=== PATIENT | male | born 1960 | race Caucasian/White ===

== ENCOUNTER 2020-01-20 15:00 | Outpatient (CLI) | payer OTHER, SELFPAY ==
--- NOTE | ~2020-01-20 | XR_ITS ---
EXAMINATION: XR knee RT min 4V DATE: 01/20/2020 15:35 INDICATION: Right knee pain. TECHNIQUE: 4 views of right knee were obtained. COMPARISON: None. FINDINGS: Bone alignment is normal. No fracture. Joint spaces are well maintained. There is no knee j oint effusion. IMPRESSION: 1. Normal right knee. Reviewed, dictated and finalized at location A. IMPRESSION: 1. Normal right knee.
== END 2020-01-20 15:01 | disposition home or self-care (01) ==
PROVIDERS: PCP Internal Medicine; Visit Provider Clinical Nurse Specialist
DX: M25.569 Pain in unspecified knee (principal)
CPT/HCPCS: 73564

== ENCOUNTER 2020-01-28 17:11 | Outpatient (CLI) | payer OTHER, SELFPAY ==
--- NOTE | ~2020-01-28 | MR_ITS ---
EXAMINATION: MR knee RT wo con DATE: 01/28/2020 18:03 INDICATION: Right knee pain TECHNIQUE: Magnetic resonance imaging (MRI) of the right knee was performed without intravenous contr ast. Sequences included coronal PD-weighted FSE, coronal PD-weighted FS FSE, sagittal T2-weighted FS E, sagittal PD-weighted FS FSE and axial PD weighted fat saturated FSE. COMPARISON: None. FINDINGS: Medial compartment: Medial meniscus is normal. Deep chondral fissuring with minimal underlying subarticular edema at the central aspect of the medial tibial plateau. Deep chondral fissuring without central reticular change s at the anterior weightbearing medial femoral condyle. Small region of partial-thickness chondral ul ceration with deep fissuring and minimal irregularity to the underlying articular cortex and minimal subarticular edema at the central weightbearing medial femoral condyle. Lateral compartment: There is increased signal contacting articular surface along the inner third of the portion of the ursula dy of the lateral meniscus consistent with tear of indeterminate morphology. Chondral surface regular ity and shallow chondral fissuring at the anterior weightbearing lateral femoral condyle and mid to p osterior aspect of the lateral tibial plateau. Small region of deep chondral ulceration with underlyi ng small central subchondral osteophyte and minimal subarticular edema at the posterior weightbearing lateral femoral condyle. Patellofemoral compartment: Extensive full/near full-thickness chondral ulceration along the lateral trochlea with underlying sub articular cystic change and edema. Additional deep chondral ulceration with mild irregular to the art icular cortex at the medial trochlea. Less severe partial thickness chondral ulceration at the trochl ear groove. Additional deep patellar chondral fissuring and ulceration with scattered subarticular ed smiley involving the medial and lateral facets as well as the apical ridge. Ligaments and tendons: Anterior and posterior cruciate ligaments are normal. The medial collateral ligament is normal. There is mild thickening and minimal increased signal of the proximal fibular collateral ligament without surrounding edema consistent with scarring related to chronic sprain. Mild distal quadriceps tendinop athy without discrete tear. The patellar tendon is normal. The visualized medial and lateral hamstrin g tendons as well as the iliotibial band are normal. Fluid: Physiologic amount of fluid in the joint space. No loose osteochondral bodies identified. Osseous/other: Bone alignment is normal. No fracture or pathologic marrow replacing process. IMPRESSION: 1. Small tear of indeterminate morphology along the inner third of the body of the lateral meniscus. 2. Mild tricompartmental osteoarthritis at the right knee with regions of high-grade chondromalacia i n all 3 compartments most severe and extensive in the patellofemoral compartment. Reviewed, dictated and finalized at location A. IMPRESSION: 1. Small tear of indeterminate morphology along the inner third of the body of the lateral meniscus. 2. Mild tricompartmental osteoarthritis at the right knee with regions of high- grade chondromalacia in all 3 compartments most severe and extensive in the pat ellofemoral compartment.
== END 2020-01-28 17:12 | disposition home or self-care (01) ==
LOC: ANHIMG 17:12
PROVIDERS: PCP Internal Medicine; Visit Provider Clinical Nurse Specialist
DX: M17.11 Unilateral primary osteoarthritis, right knee (principal)
CPT/HCPCS: 73721

== ENCOUNTER 2021-06-01 07:58 | Outpatient (RCR) | payer OTHER, SELFPAY ==
[2021-06-01 10:25] VITALS: BP 109/76; PULSE 60; RESP 20; TEMP 36.7; O2SAT 98
[2021-06-01] MEDS: diphenhydrAMINE HCl CAP 25 MG CAPSULE PO (10:28)
[2021-06-01] MEDS: FAMOTIDINE 20 MG TABLET PO (10:28)
[2021-06-01] MEDS: ACETAMINOPHEN 325 MG TABLET 650 MG PO (10:28)
[2021-06-01 12:10] VITALS: BP 134/72
--- NOTE | 2021-06-02 11:02 | PC.NURSE ---
Mr Ace called back and stated he is feeling well today, just complaining of fatigue. He has no questions at this time for us.
== END 2021-06-01 17:00 ==
LOC: AMCINF 07:58
PROVIDERS: PCP Nurse Practitioner; Visit Provider Internal Medicine Hematology & Oncology
DX: U07.1 COVID-19 (principal); I10 Essential (primary) hypertension
CPT/HCPCS: A9270; M0243; Q0243

== ENCOUNTER 2021-08-15 00:24 | Day surgery (SDC) | payer OTHER, SELFPAY ==
[2021-08-15 09:37] VITALS: BP 131/83; PULSE 86; RESP 22; TEMP 36.1; O2SAT 96
[2021-08-15] MEDS: LACTATED RINGERS 1,000 ML 150 ML IV CONT (09:45)
--- NOTE | 2021-08-15 09:49 | P.PNAN_ITS ---
Anes - Initial Pre Proc Eval Procedure: Operation Date: 08/15/21 11:00 Proposed Procedures p Screening Colonoscopy - Patricio Connelly MD Date/Time: 08/15/21 09:49 Surgeon: Patricio Connelly MD Pre Op Diagnosis: neoplasm screening Patient Data Age: 60 Gender: M Height: 1.83 m Weight: 182 kg Last Vital Signs Temp 97 F L 08/15/21 09:37 Pulse 86 08/15/21 09:37 Resp 22 H 08/15/21 09:37 BP 131/83 08/15/21 09:37 Pulse Ox 96 08/15/21 09:37 Allergies Allergy/AdvReac Type Severity Reaction Status Date / Time No Known Allergies Allergy Verified 08/15/21 09:36 Home Medications Medication Instructions Recorded Confirmed Type sildenafil 100 mg tablet 100 mg PO DAILY PRN #30 tablet 04/21/20 07/29/21 Rx losartan 50 mg tablet 50 mg PO DAILY #90 tablet 04/26/21 07/29/21 Rx Patient hx anesthesia problems: none Family hx anesthesia problems: none Results Review: All pre-operative results and documents have been reviewed as part of the pre-operative evaluation. [facility] Past Medical History Medical History (Updated 06/01/21 @ 08:19 by Sam Reid, PharmD) Cholecystectomy planned Chondromalacia, patella Hyperlipidemia Hypertension Lateral meniscus tear Morbid obesity due to excess calories Right knee pain Vision abnormalities Weight gain Family History Family History Mother Family history of Alzheimer's disease Other Heart disease Hypertension Social History Social History (Updated 04/26/21 @ 09:04 by Merary Ferreira) Social History: Caffeine-soda occasionally Smoking status: Never smoker Tobacco type: smokeless tobacco Smokeless tobacco user: chewing tobacco Alcohol intake: current Alcohol use details: [facility] Living arrangements: with family Spiritual care concerns: No Anes - Eval Final PreProcedure Day of Procedure 08/15/21 09:49 Patient weight: super morbidly obese Heart: regular rate and rhythm Lungs: clear to auscultation Airway: Mallampati scale class III Neurological: alert and oriented Last oral intake: >/= 8 hours ASA classification: IV Emergent: no Anesthetic plan: proceed Anesthesia type and monitoring: general GIVS and standard monitoring Results Review: All pre-operative results and documents have been reviewed as part of the pre-operative evaluation. Informed Consent: The patient's anesthetic plan and its attendant risks and benefits were discussed with the patient/family/POA. Questions were solicited and answers provided to the satisfaction of the patient/family/POA.
--- NOTE | 2021-08-15 09:56 | PM.HPGS ---
History of Present Illness History of Present Illness Consent: Risks, benefits, and alternatives have been discussed and questions answered. Patient agrees to proceed with procedure. Chief complaint: neoplasm screening Narrative: Anshu Bello is a 60 year old male here for screening colonoscopy, last one about 10 years ago. Review of Systems Constitutional: Constitutional: Denies headache(s) and Denies weakness Eyes: Eyes: Denies blurry vision ENT: Reports Normal hearing present, Denies headache(s) and Denies neck pain Cardiovascular: Cardiovascular: Denies chest pain and Denies dyspnea Respiratory: Respiratory: Denies dyspnea Gastrointestinal: Gastrointestinal: Reports no additional gastrointestinal complaints Genitourinary: Genitourinary: Denies dysuria Musculoskeletal: Musculoskeletal: Denies neck pain Integumentary/Breasts: Skin/Breast: Denies dry skin Neurologic: Reports Normal hearing present, Denies headache(s) and Denies weakness Psychiatric: Psychiatric: Denies anxiety Endocrine: Endocrine: Denies change in body appearance Hematologic/Lymphatic: Hematologic/Lymphatic: Denies easy bleeding Allergic/Immunologic: Allergic/Immunologic: Denies urticaria PMFSH Past Medical History Medical History (Updated 06/01/21 @ 08:19 by Sam Reid, PharmD) Cholecystectomy planned Chondromalacia, patella Hyperlipidemia Hypertension Lateral meniscus tear Morbid obesity due to excess calories Right knee pain Vision abnormalities Weight gain Family History Family History Mother Family history of Alzheimer's disease Other Heart disease Hypertension Social History Social History (Updated 04/26/21 @ 09:04 by Merary Ferreira) Social History: Caffeine-soda occasionally Smoking status: Never smoker Tobacco type: smokeless tobacco Smokeless tobacco user: chewing tobacco Alcohol intake: current Alcohol use details: [facility] Living arrangements: with family Spiritual care concerns: No Meds Home Medications and Allergies Home Medications Medication Instructions Recorded Confirmed Type sildenafil 100 mg tablet 100 mg PO DAILY PRN #30 tablet 04/21/20 07/29/21 Rx losartan 50 mg tablet 50 mg PO DAILY #90 tablet 04/26/21 07/29/21 Rx Allergies Allergy/AdvReac Type Severity Reaction Status Date / Time No Known Allergies Allergy Verified 08/15/21 09:36 Vital Signs Vital Signs - 24 hr 08/15/21 09:37 Temperature 97 F L Pulse Rate 86 Respiratory Rate 22 H Blood Pressure 131/83 Pulse Oximetry 96 Exam Const: General: comfortable and no acute distress HENMT: General nose exam: Normal nares present Eyes: General: appearance normal, both eyes and all related structures Neck: Neck: no JVD Resp: Auscultation: clear to auscultation bilaterally Cardio: Rate: regular rate Rhythm: regular rhythm GI: Inspection: non-distended GI Palp: Yes Soft to palpation Skin: General skin exam: normal color Neuro: General: gait normal Speech: normal speech Extrem: General: normal to inspection Psych: Mental Status: mental status grossly normal Assessment and Plan Assessment and plan (1) Screening for colon cancer: Code(s): Z12.11 - Encounter for screening for malignant neoplasm of colon Status: Acute Assessment and Plan: colonoscopy
[2021-08-15 10:18] VITALS: BP 155/85; PULSE 92; RESP 22; O2SAT 94
[2021-08-15 10:28] VITALS: BP 129/84; PULSE 82; RESP 33; O2SAT 97
[2021-08-15 10:38] VITALS: BP 132/79; PULSE 81; RESP 22; O2SAT 96
== END 2021-08-15 10:44 | disposition home or self-care (01) ==
PROVIDERS: PCP Internal Medicine; Visit Provider Internal Medicine Gastroenterology
PROC: 0DJD8ZZ Inspection of Lower Intestinal Tract, Via Natural or Artificial Opening Endoscopic (ICD-10-PCS; CPT 45378; principal; 2021-08-15 11:00)
DX: Z12.11 Encounter for screening for malignant neoplasm of colon (principal); K63.5 Polyp of colon; K64.8 Other hemorrhoids; E78.5 Hyperlipidemia, unspecified; I10 Essential (primary) hypertension; E66.9 Obesity, unspecified; Z68.43 Body mass index [BMI] 50.0-59.9, adult
CPT/HCPCS: 45385; 88305; J2704; J7120

== ENCOUNTER 2021-08-25 08:13 | Outpatient (CLI) | payer OTHER, SELFPAY ==
--- NOTE | ~2021-08-25 | US_ITS ---
EXAMINATION: US soft tissue head and neck DATE: 08/25/2021 08:42 INDICATION: Neck lump. TECHNIQUE: Multiple grayscale and Doppler ultrasound images of the neck were obtained. COMPARISON: None FINDINGS: There are normal lymph nodes in the patient's areas of concern in right neck. No abnormal m ass. IMPRESSION: 1. Normal lymph nodes in the patient's areas of concern in right neck. Reviewed, dictated and finalized at location A. ER HEWER
--- NOTE | ~2021-08-25 | US_ITS ---
EXAMINATION: US soft tissue abdomen DATE: 08/25/2021 08:42 INDICATION: Right abdominal lump. TECHNIQUE: Multiple grayscale and Doppler ultrasound images of the abdomen were obtained. COMPARISON: Abdomen ultrasound 10/18/2016 FINDINGS: There is a 1.1 x 0.4 x 0.8 cm hypoechoic subcutaneous mass in right abdominal wall in the p atient's area of concern. IMPRESSION: 1. Nonspecific 1.1 cm hypoechoic subcutaneous mass in right abdominal wall in the patient's area of c oncern, which may be benign or less likely malignant. Consider either clinical follow-up or ultrasoun d-guided core needle biopsy. Reviewed, dictated and finalized at location A. RT PRE COOKER IMPRESSION: 1. Nonspecific 1.1 cm hypoechoic subcutaneous mass in right abdominal wall in t he patient's area of concern, which may be benign or less likely malignant. Con senior net software developer either clinical follow-up or ultrasound-guided core needle biopsy.
== END 2021-08-25 08:14 | disposition home or self-care (01) ==
PROVIDERS: PCP Internal Medicine; Visit Provider Family Medicine
DX: R59.0 Localized enlarged lymph nodes (principal); R19.00 Intra-abdominal and pelvic swelling, mass and lump, unspecified site
CPT/HCPCS: 76536; 76705

== ENCOUNTER 2021-09-08 08:57 | Outpatient (CLI) | payer OTHER, SELFPAY ==
--- NOTE | ~2021-09-08 | US_ITS ---
EXAMINATION: US biopsy abd retroperitoneal DATE: 09/08/2021 10:34 INDICATION: Hypoechoic subcutaneous mass at the right flank TECHNIQUE: The procedure including the risks and benefits was discussed with the patient. Risks discu ssed included bleeding and infection. The patient understood the risks and agreed to proceed. The sk in overlying the palpable abnormality at the right flank was prepped and draped in usual sterile fash ion. Anesthetic was administered with 1% lidocaine subcutaneously. An 18 gauge core biopsy needle w as advanced under continuous ultrasound observation to the lesion of interest. 3 core biopsy specime ns were obtained. The needle was removed and the entry site was cleaned and dressed. Post procedure ultrasound demonstrated no hemorrhage. FINDINGS: Ultrasound images demonstrate a 1.6 x 1.1 x 0.7 cm hypoechoic mass in the subcutaneous fat at the region of concern. Subsequent images demonstrate the biopsy needle advanced into the mass. IMPRESSION: 1. Successful Ultrasound-guided biopsy of the 1.3 cm hypoechoic subcutaneous mass of concern at the r ight flank. Reviewed, dictated and finalized at location A. IMPRESSION: 1. Successful Ultrasound-guided biopsy of the 1.3 cm hypoechoic subcutaneous ma ss of concern at the right flank.
== END 2021-09-08 08:58 | disposition home or self-care (01) ==
PROVIDERS: PCP Internal Medicine; Visit Provider Family Medicine
DX: R19.00 Intra-abdominal and pelvic swelling, mass and lump, unspecified site (principal)
CPT/HCPCS: 49180; 76942; 88305

== ENCOUNTER 2023-01-25 12:27 | Outpatient (RCR) | payer OTHER, SELFPAY ==
--- NOTE | 2023-01-25 13:13 | PTOPEVDC ---
Assessment and note entered by Elder Ewing, PT Thank you for referring Anshu Bello to [facility].? An evaluation has been completed. No further treatment is needed. Evaluation Information Assessment Status Evaluation Diagnosis Dizziness and Giddiness Onset 01/15/23 Subjective Information Patient reports SundayJanuary 15 the patient got out of bed and felt a little dizzy. After sitting there for a bit he stood up and then bent over to pick something up and felt light headed, dizzy and needed to sit down again because he was afraid of falling. Patient after resting got up and grab a drink and reports feeling better. The next morning he got up and felt a little off when he sat up, but after sitting awhile he felt better and since then reports no issues. Patient states he might have worked out a little harder than he thought the day before and had a cheat day on that Sunday also. Reported Pain Level Pain Score 0: Self Report Assessment PT Clinical Summary Anshu is a 62 year old male coming into the clinic with a diagnosis of dizziness and giddiness. Patient has two episodes about 10 days ago and since then none. Patient has normal ocular motor movement, good balance with eyes closed, on foam pad, and NBOS and negative giovanni Hallpike tests. Unable to elicit any S/S similar to his experience on January 15 and . Physical therapist thinking patient might have been dehydrated from working out extra hard the day before and possibly not hydrating as he should. No further visits recommend Plan of Care PT Services Indicated No Treatment Frequency and Discharged from skilled physical therapy Duration
== END 2023-01-26 14:24 | disposition home or self-care (01) ==
LOC: ANHPT 12:27
PROVIDERS: PCP Internal Medicine; Visit Provider Internal Medicine
DX: R42 Dizziness and giddiness (principal)
CPT/HCPCS: 97161

== ENCOUNTER → 2023-05-10 12:47 | Outpatient (CLI) | payer OTHER, SELFPAY ==
--- NOTE | ~2023-05-10 | US_ITS ---
EXAMINATION: US soft tissue head and neck DATE: 05/10/2023 13:03 INDICATION: Localized enlarged lymph nodes in right supraclavicular region. TECHNIQUE: Multiple grayscale and Doppler ultrasound images of the head and neck were obtained. COMPARISON: Ultrasound 08/25/2021 FINDINGS: There are normal lymph nodes in right neck in the patient's area of concern. IMPRESSION: 1. No abnormal mass or lymphadenopathy in the patient's area of concern in right neck. Reviewed, dictated and finalized at location A. TROTYPE MOLDER IMPRESSION: 1. No abnormal mass or lymphadenopathy in the patient's area of concern in righ t neck.
== END ==
PROVIDERS: PCP Internal Medicine; Visit Provider Internal Medicine
DX: J31.2 Chronic pharyngitis (principal); R59.0 Localized enlarged lymph nodes; Z72.0 Tobacco use
CPT/HCPCS: 76536

== ENCOUNTER 2024-01-23 14:56 | Emergency (ER) | payer OTHER, SELFPAY ==
--- NOTE | 2024-01-23 15:01 | ED.URI ---
HPI - URI/Sore Throat General Chief Complaint: Upper Respiratory Infection Stated Complaint: SORE THROAT/RUNNY NOSE/COUGH Time Seen by Provider: 01/23/24 15:01 Source: patient Mode of arrival: ambulatory Limitations: no limitations History of Present Illness HPI Narrative: Anshu is a 63-year-old male patient presenting to the clinic today with complaints of sore throat, runny nose, and cough times x4 days. He reports he may have had a fever on Sunday as he felt feverish. Denies any chest pain or shortness of breath. Denies any dental pain. MD elicited complaint: cough, sore throat and nasal congestion Related Data Allergies Allergy/AdvReac Type Severity Reaction Status Date / Time No Known Allergies Allergy Verified 01/23/24 15:06 Review of Systems Review of Systems: Pertinent positives per HPI. Patient denies any fever, chills, rash, headache, visual changes, dizziness, cough, shortness of breath, chest pain, palpitations, nausea, vomiting, diarrhea, constipation, abdominal pain, or any urinary issues. [facility] Past Medical History Medical History Cholecystectomy planned Chondromalacia, patella Hyperlipidemia Hypertension Lateral meniscus tear Morbid obesity due to excess calories Right knee pain Vision abnormalities Weight gain Family History Family History Mother Family history of Alzheimer's disease Other Heart disease Hypertension Social History Social History Social History: Caffeine-soda occasionally Smoking status: Never smoker Tobacco type: smokeless tobacco Smokeless tobacco user: chewing tobacco Alcohol intake: current Alcohol use details: rarley-beer Lack of Transportation: No Lack of Food: Never True Current Housing: I Have Housing Concerned About Future Housing: No Difficulty Paying Gas/Electric Bills: No Difficulty Paying for Meds: No Currently Unemployed: Decline to Answer Education: Decline to Answer Difficulty w/ Childcare or Family Care: Decline to Answer Living arrangements: with family Spiritual care concerns: No Comments At the time of my signature, I reviewed and agree with the nursing past medical, surgical, social, and family history. There is no relevant family history pertinent to the patient complaint. Exam Narrative: General: Well-developed, morbidly obese, in no apparent distress Head: Normocephalic, atraumatic Eyes: Pupils equally round and reactive to light bilaterally, EOM intact, sclera and conjunctive clear, no discharge, lids normal Ears: TMs intact and congested, ear canals clear, no drainage, grossly hearing normal. Nose: Nares patent, clear discharge, no inflammation, no sinus tenderness. Mouth: Oral pharynx red without lesions or masses, good dentition, MMM. Neck: Supple, trachea midline, no enlargement of anterior or posterior cervical nodes, no thyroid masses or goiter palpable. Cardio: Regular rate and rhythm, s1 and s2 normal, no murmur appreciated. Resp: Clear to auscultation bilaterally, no rhonchi, rales, wheezing or rubs Course Course Emergency Course: Portions of this record may have been created with voice recognition software. Level of Care: Express Care Visit Vital Signs Vital signs: Vital Signs Temperature 37.0 C 01/23/24 15:10 Pulse Rate 72 01/23/24 15:10 Respiratory Rate 16 01/23/24 15:10 Blood Pressure 161/98 H 01/23/24 15:10 Pulse Oximetry 97 01/23/24 15:10 Temperature 37.0 C 01/23/24 15:10 Pulse Rate 72 01/23/24 15:10 Respiratory Rate 16 01/23/24 15:10 Blood Pressure 161/98 H 01/23/24 15:10 Pulse Oximetry 97 01/23/24 15:10 Vital signs reviewed MDM - URI/Sore Throat MDM Narrative Medical decision making narrative: At the time of visit patient is resting comfortably on th
[2024-01-23 15:10] VITALS: BP 161/98; PULSE 72; RESP 16; TEMP 37; O2SAT 97
[2024-01-23 15:23] LABS: EDSTREPNEGPOS1 Presumptive Negative
== END 2024-01-23 15:16 | disposition home or self-care (01) ==
PROVIDERS: Emergency Provider Nurse Practitioner Family; PCP Internal Medicine
DX: U07.1 COVID-19 (principal); F17.220 Nicotine dependence, chewing tobacco, uncomplicated; E78.5 Hyperlipidemia, unspecified; I10 Essential (primary) hypertension; E66.01 Morbid (severe) obesity due to excess calories; Z68.43 Body mass index [BMI] 50.0-59.9, adult
CPT/HCPCS: 87081; 87426; 87880; 99213; G0463

== ENCOUNTER 2024-04-08 14:10 | Outpatient (RCR) | payer OTHER, SELFPAY ==
[2024-04-08 14:18] VITALS: BMI 55.3
[2024-04-08 14:21] VITALS: BMI 55.3
== END 2024-06-23 09:36 | disposition home or self-care (01) ==
LOC: ANHDMC 14:10
PROVIDERS: PCP Internal Medicine; Visit Provider Nurse Practitioner
DX: E66.9 Obesity, unspecified (principal); Z71.9 Counseling, unspecified; Z71.3 Dietary counseling and surveillance; Z68.43 Body mass index [BMI] 50.0-59.9, adult
CPT/HCPCS: 97802

== ENCOUNTER 2024-05-28 14:45 | Outpatient (RCR) | payer OTHER, SELFPAY ==
--- NOTE | 2024-04-24 10:23 | OPREHPOC ---
Outpatient Therapy Plan of Care This is a Multidisciplinary Plan of Care that may contain components documented by all disciplines (PT, OT, and ST.) PT Problem 1 PT Problem #1 Knowledge Deficit PT Goal 1 Goal / Goal Update Pt to be IND with issued HEP Target Visit 6 PT Problem 2 PT Problem #2 Pain PT Goal 1 Goal / Goal Update 1. Pt to report pain no greater than 3/10 in the last week. 2. Pt to report 75% improvement in overall symptoms. 3. Pt to report being able to sit for 1 hour without an increase in pain upon standing. Target Visit 6 PT Problem 3 PT Problem #3 Impaired Gait PT Goal 1 Goal / Goal Update 1. Pt to ambulate with a neutral gait pattern. Target Visit 6
--- NOTE | 2024-04-24 10:23 | PTOPEVAL1 ---
Assessment and note entered by Lupe Fletcher, PT, DPT Evaluation Information Assessment Status Evaluation Diagnosis low back pain ICD-10 Condition Codes (PT) Pain in low back M54.50 Subjective Information Pt report low back and R shoulder pain, the back pain started about 2 months ago and the shoulder about a month ago. Pt states sitting down or lifting anything is really hard for his low back. He states he drove to [place] straight through and feels like that is what started his pain. He states his R leg will go numb at times. Pt is retired. Reported Pain Level Pain Score 0: Self Report Assessment PT Clinical Summary Pt presents to therapy today for his initial evaluation with a diagnosis of low back pain, he also complains of R shoulder pain. He demonstrate functional ROM and strength in his BLE and BUE. He reports pain with max hip flexion on the R and demonstrates pelvic asymmetry in supine. He ambulates with a uncompensated Trendelenburg pattern. Skilled therapy services are indicated to address pain reports, improve lateral hip strength, improved lumbar mobility, and to return to PLOF. Plan of Care Interventions Electrical Stimulation,Hot Pack/Cold Pack,Manual Therapy,Neuro Re-education,Patient/Caregiver Educati,Therapeutic Activities,Therapeutic Exercise PT Services Indicated Yes Treatment Frequency and 1x/wk for 6 visits Duration These treatments will address the objective and functional deficits as defined above. The patient will be advanced safely and appropriately in order for the patient to progress towards his/her prior level of function. Additional exercises will be introduced and as well as a comprehensive home exercise program upon discharge, if needed, ?to ensure carryover of functional gains achieved in the clinic. This treatment plan has been reviewed and agreement upon by the patient.
--- NOTE | 2024-05-28 15:18 | PTOPDC ---
Assessment and note entered by Lupe Fletcher, PT, DPT Evaluation Information Assessment Status Discharge Diagnosis low back pain ICD-10 Condition Codes (PT) Pain in low back M54.50 Subjective Information Pt states his back is a lot better. He states he did over 10 hours of driving of the weekend and did not have any back pain, he states prior he would have pain after 30 mins of driving. He states his knees are starting to bother him now. He declines any numbness in the last 3 weeks. Reported Pain Level Pain Score 0: Self Report Assessment PT Clinical Summary Pt presents to therapy today for his progress report following 6 visits of skilled therapy to treat his diagnosis of low back pain. Today he reports decreased back pain at time but still has pain when he feels he has overexerted himself. Pt would like not to continue with therapy at this time. Edu to cont HEP. Plan of Care PT Services Indicated No
== END 2024-05-28 15:33 | disposition home or self-care (01) ==
LOC: ANHGOSHPT 14:45
PROVIDERS: PCP Internal Medicine; Visit Provider Internal Medicine
DX: M54.50 Low back pain, unspecified (principal)
CPT/HCPCS: 97014; 97110; 97140; 97161; 97530; G0283

== ENCOUNTER 2024-06-11 13:01 | Outpatient (CLI) | payer OTHER, SELFPAY ==
--- NOTE | 2024-06-11 14:30 | NEURO_ITS ---
Impression: # Complains of numbness of right hand. ? # Mild right Carpal Tunnel Syndrome. ? # No ulnar neuropathy. ? # Normal needle/EMG exam. Nerve Conduction Studies Anti Sensory Summary Table ?Stim Site NR Peak (ms) P-T Amp (?V) Site1 Site2 Delta-P (ms) Dist (cm) Ernesto (m/s) Right Median Anti Sensory (2-3nd Digit) Wrist ? 4.3 19.7 Wrist 2-3nd Digit 4.3 14.0 33 Wrist ? 4.4 28.6 Wrist 2-3nd Digit 4.3 14.0 33 Right Radial Anti Sensory (Base 1st Digit) Wrist ? 2.2 15.4 Wrist Base 1st Digit 2.2 0.0 Right Ulnar Anti Sensory (5th Digit) Wrist ? 2.8 16.9 Wrist 5th Digit 2.8 14.0 50 Motor Summary Table ?Stim Site NR Onset (ms) O-P Amp (mV) Site1 Site2 Delta-0 (ms) Dist (cm) Ernesto (m/s) Right Median Motor (Abd Poll Brev) Wrist ? 4.0 1.6 Elbow Wrist 5.3 28.0 53 Elbow ? 9.3 2.7 Right Ulnar Motor (Abd Dig Minimi) Wrist ? 2.5 9.2 A Elbow Wrist 5.3 29.0 55 A Elbow ? 7.8 9.0 F Wave Studies ?NR F-Lat (ms) L-R F-Lat (ms) Right Median (Mrkrs) (Abd Poll Brev) ? 33.88 Right Ulnar (Mrkrs) (Abd Dig Min) ? 31.62 EMG ?Side Muscle Nerve Root Ins Act Fibs Amp Dur Recrt Comment Right 1stDorInt Ulnar C8-T1 Nml Nml Nml Nml Nml Right Ext Indicis Radial (Post Int) C7-8 Nml Nml Nml Nml Nml Right Ext Digitorum Radial (Post Int) C7-8 Nml Nml Nml Nml Nml Right BrachioRad Radial C5-6 Nml Nml Nml Nml Nml Right PronatorTeres Median C6-7 Nml Nml Nml Nml Nml Right Abd Poll Brev Median C8-T1 Nml Nml Nml Nml Nml Right ABD Dig Min Ulnar C8-T1 Nml Nml Nml Nml Nml MTDD
== END 2024-06-11 13:02 | disposition home or self-care (01) ==
PROVIDERS: PCP Internal Medicine; Visit Provider Internal Medicine
DX: G56.01 Carpal tunnel syndrome, right upper limb (principal); G56.10 Other lesions of median nerve, unspecified upper limb
CPT/HCPCS: 95886; 95909

== ENCOUNTER 2024-08-04 11:46 | Outpatient (CLI) | payer OTHER, SELFPAY ==
--- NOTE | ~2024-08-04 | XR_ITS ---
Right Knee Technique: AP, lateral, and sunrise views were obtained. Clinical History: Pain Findings: No fracture or dislocation is seen. Osseous alignment is anatomic. Joint spaces are preserv ed without degenerative or erosive change. Soft tissues are unremarkable. No joint effusion is seen. Impression: Unremarkable right knee radiographs. Reviewed, dictated and finalized at location . GER CASE Impression: Unremarkable right knee radiographs.
== END 2024-08-04 11:47 | disposition home or self-care (01) ==
LOC: GOSHIMG 11:46
PROVIDERS: PCP Internal Medicine; Visit Provider Nurse Practitioner
DX: M25.561 Pain in right knee (principal)
CPT/HCPCS: 73562

== ENCOUNTER 2024-08-12 12:50 | Outpatient (CLI) | payer OTHER, SELFPAY ==
--- NOTE | ~2024-08-12 | MR_ITS ---
EXAMINATION: MR knee RT wo con DATE: 08/12/2024 13:26 INDICATION: Right knee pain TECHNIQUE: Magnetic resonance imaging (MRI) of the right knee was performed without intravenous contr ast. Sequences included coronal PD-weighted FSE, coronal PD-weighted FS FSE, sagittal T2-weighted FS E, sagittal PD-weighted FS FSE and axial PD weighted fat saturated FSE. COMPARISON: None. FINDINGS: Medial compartment: Tear, likely complex extending to the free edge and inferior articular surface of the body the medial meniscus. Deep chondral fissuring at the central aspect of the medial tibial plateau with mild under lying subarticular edema-like signal change and along the anterior to central weightbearing medial fe moral condyle with subtle cortical irregularity and small focus of mild subarticular edema-like signa l change at the posterior weightbearing medial femoral condyle. Lateral compartment: Small radial tear along the innermost free edge of the body the lateral meniscus. Mild partial-thickn ess cartilage loss without degenerative subchondral changes along the central weightbearing lateral f emoral condyle. Patellofemoral compartment: Deep chondral ulceration at the cephalad aspect of the patellar apical ridge and deep fissuring more caudally at the apical ridge and at the medial and lateral patellar facets with a few underlying foci of mild subarticular edema-like signal change. Deep chondral ulceration with underlying cortical irr egularity and mild subarticular edema-like signal change at the lateral trochlea with less severe par tial thickness chondral ulceration without degenerative subchondral changes at the trochlear groove a nd lateral trochlea. Ligaments and tendons: Anterior and posterior cruciate ligaments are normal. The medial collateral ligament and fibular ibis ateral ligament complex are normal. The extensor mechanism is normal. The visualized medial and later al hamstring tendons as well as the iliotibial band are normal. Fluid: Physiologic amount of fluid in the joint space. No loose osteochondral bodies identified. Osseous/other: Alignment is normal. No fracture or pathologic marrow replacing process. IMPRESSION: 1. Tear, likely complex, at the body the medial meniscus and very small radial tear along the inner f ree edge of the body the lateral meniscus. 2. Tricompartmental osteoarthritis, moderate severity with high-grade chondral malacia the patellofem oral compartment, mild with high-grade chondromalacia in the medial compartment and mild with moderat e grade chondromalacia in the lateral compartment. Reviewed, dictated and finalized at location A. AD CLIPPER IMPRESSION: 1. Tear, likely complex, at the body the medial meniscus and very small radial tear along the inner free edge of the body the lateral meniscus. 2. Tricompartmental osteoarthritis, moderate severity with high-grade chondral malacia the patellofemoral compartment, mild with high-grade chondromalacia in the medial compartment and mild with moderate grade chondromalacia in the later al compartment.
== END 2024-08-12 12:51 | disposition home or self-care (01) ==
PROVIDERS: PCP Internal Medicine; Visit Provider Nurse Practitioner
DX: M25.561 Pain in right knee (principal); S83.241A Other tear of medial meniscus, current injury, right knee, initial encounter; S83.281A Other tear of lateral meniscus, current injury, right knee, initial encounter; X58.XXXA Exposure to other specified factors, initial encounter; M17.11 Unilateral primary osteoarthritis, right knee; M94.261 Chondromalacia, right knee
CPT/HCPCS: 73721

== ENCOUNTER 2025-01-02 09:30 | Outpatient (RCR) | payer MEDICARE, OTHER, SELFPAY ==
--- NOTE | 2024-10-22 10:58 | PTOPEVAL1 ---
Assessment and note entered by Dennis Troy Evaluation Information Assessment Status Evaluation ICD-10 Condition Codes (PT) Pain in right knee M25.561 Subjective Information Pt. reports that he injured the right knee in April of last year. He states that he has experienced fluctuating pain since the initial injury. He reports that he underwent x-ray and MRI which revealed a meniscus tear in the right knee. He reports that he gets increased pain with any twisting motion in standing, stairs and squatting/kneeling activities. He states that he enjoys yard work, but has been limited in outdoor work due to his pain. He reports that he was going to the gym, but is now limited. he reports that he can only stand for a few minutes due to pain and has to sit frequently. He has had an injection in the knee, but got little relief. He reports that his goal is to reduce his knee pain. Reported Pain Level Pain Score 2: Self Report Assessment PT Clinical Summary Pt. is a 63 year old male who enters the clinic with right knee pain due to developed meniscus tear. He presents with impaired gait, impaired l. e. strength, impaired right knee mobility, pain and functional decline. Continued skilled PT is indicated in order to improve these areas to allow the pt. to return to normal IADL performance and return to normal recreational activities for a male of his age. Plan of Care Interventions Electrical Stimulation,Gait Training,Hot Pack/Cold Pack,Manual Therapy,Neuro Re-education,Patient/ Caregiver Education,Therapeutic Activities, Therapeutic Exercise PT Services Indicated Yes Treatment Frequency and 2x/week x 10 visits Duration These treatments will address the objective and functional deficits as defined above. The patient will be advanced safely and appropriately in order for the patient to progress towards his/her prior level of function. Additional exercises will be introduced and as well as a comprehensive home exercise program upon discharge, if needed, ?to ensure carryover of functional gains achieved in the clinic. This treatment plan has been reviewed and agreement upon by the patient.
--- NOTE | 2024-10-22 10:58 | OPREHPOC ---
Outpatient Therapy Plan of Care This is a Multidisciplinary Plan of Care that may contain components documented by all disciplines (PT, OT, and ST.) PT Problem 1 PT Problem #1 Knowledge Deficit PT Goal 1 Goal / Goal Update Pt. will be independent with a HEP addressing knee mobility and proximal l.e. strength. Target Visit 2 PT Problem 2 PT Problem #2 Impaired Range of Motion PT Goal 1 Goal / Goal Update Pt. will demonstrate 0-125 degrees right knee AROM .10 PT Problem 3 PT Problem #3 Impaired Strength PT Goal 1 Goal / Goal Update Pt. will present with 4+/5 bilateral hip abduction strength to improve hip stability during stance phase and to assist with normalizing gait. Target Visit 10 PT Problem 4 PT Problem #4 Impaired Functional Mobility PT Goal 1 Goal / Goal Update Pt. will demonstrate 20% improvement or greater on the LEFS indicating significant functional improvement. Pt. will demonstrate ability to participate in 20- 30 minutes of standing therapeutic activities with 2/10 pain at worst to return to normal IADL performance and recreational activities. Target Visit 10
--- NOTE | 2024-11-07 07:53 | PCPTNOTE ---
Patient called and cancelled his appointment for today, 11/07 as well as his appointments on 11/11 and 11/18 stating he only wants to come 1x/week.
--- NOTE | 2024-12-01 15:20 | PCPTNOTE ---
Patient cancelld leaving a message on [facility] but did not give a reason.
--- NOTE | 2025-01-02 10:00 | PTOPDC ---
Assessment and note entered by Sally Rondon, PT Evaluation Information Assessment Status Discharge ICD-10 Condition Codes (PT) Pain in right knee M25.561 Subjective Information He reports that he can only stand for a few minutes due to pain and has to sit frequently. He is unable to walk more than 30 yeards without having pain. He has been doing his exercises but continues to report feeling no difference. He does not think the injection helped at all. He reports if he twists his knee wrong it gives him a sharp pain and he has resorted to not bending his knee when he walks. Reported Pain Level Pain Score 0: Self Report Additional Pain Score Comments sharp pain when walking 01/01 Assessment PT Clinical Summary Patient's condition has made little to no advancements in symptoms, mobility, strength, and functional tolerance to ADLs. Pt's PT goals remain unmet with little to no progress made towards them. Patient to DC from PT this date and continue with HEP as instructed. Pt to contact PT or PCP if questions or concerns arise. Plan of Care PT Services Indicated Yes
== END 2025-01-05 09:44 | disposition home or self-care (01) ==
LOC: ANHGOSHPT 09:30
PROVIDERS: PCP Internal Medicine; Visit Provider Orthopaedic Surgery
DX: M25.561 Pain in right knee (principal); S83.231A Complex tear of medial meniscus, current injury, right knee, initial encounter; R26.89 Other abnormalities of gait and mobility; M17.9 Osteoarthritis of knee, unspecified
CPT/HCPCS: 97014; 97110; 97161; 97530; G0283

== ENCOUNTER 2025-05-04 15:44 | Emergency (ER) | payer MEDICARE, SELFPAY ==
[2025-05-04 15:54] VITALS: BP 157/93; PULSE 77; RESP 16; TEMP 36.6; O2SAT 98
--- NOTE | 2025-05-04 16:07 | ED_ITS ---
HPI - URI/Sore Throat General Chief Complaint: Upper Respiratory Infection Stated Complaint: Sore Throat Time Seen by Provider: 05/04/25 16:08 Source: patient, RN notes reviewed and old records reviewed Mode of arrival: ambulatory Limitations: no limitations History of Present Illness HPI Narrative: 64 year old male present to express care with complaints of sore throat with swelling and knot noted to the left anterior jaw line since Sunday morning with palpable tenderness. Patient reports that his pain is aggravated by eating and swallowing. Patient reports that he has had something similar in past and was t reated with antibiotics and it resolved. Patient reports no fevers chills or sweats, denies any dental pain or any known dental caries. Patient has no difficulty with his breathing and is swallowing without difficulty and is able to control his own oral secretions,no hoarseness noted.Patient reports that he is taking Meloxicam 15 mg daily, has not used ice to jaw area. Patient reports that he has appointment with his physician on Sunday. but didn't want to wait any longer to be seen. MD elicited complaint: sore throat and other (lump under left anterior jaw line) Pertinent past history: other (similar knot on jaw in past treated with antibiotics) Onset (ago): day(s) (3-4 days) Pain scale (0-10): 7 Description of mucous: clear Able to tolerate fluids by mouth: Yes Treatments prior to arrival: other (taking Meloxicam daily) Related Data Allergies Allergy/AdvReac Type Severity Reaction Status Date / Time No Known Allergies Allergy Verified 05/04/25 15:54 Review of Systems Review of Systems: CONSTITUTIONAL: Denies malaise, chills, sweats, or fever. EYES: Denies visual changes, redness, or discharge. ENT: Reports rhinorrhea, congestion, no sinus pain,no otalgia and positive for sore throat and swelling under his left anterior jaw with palpable knot. CARDIOVASCULAR: Denies chest pain, palpitations, or edema. RESPIRATORY: Reports no cough.? Denies dyspnea. GASTROINTESTINAL: Denies abdominal pain, nausea, vomiting, diarrhea SKIN: Denies rash or itching. MUSCULOSKELETAL: Denies myalgia. NEUROLOGIC: Denies headache. All systems reviewed & are unremarkable except as noted in HPI and below PMFSH Past Medical History Medical History Morbid obesity due to excess calories Lateral meniscus tear Chondromalacia, patella Vision abnormalities Weight gain Right knee pain Cholecystectomy planned Hyperlipidemia Hypertension Surgical History Surgical History Hx of cholecystectomy Family History Family History Mother Family history of Alzheimer's disease Father Hypertension Heart disease Alcohol abuse Sibling Hypertension Alcohol abuse Thyroid disease History of blood clots Social History Social History Social History: Caffeine-soda occasionally Tobacco type: smokeless tobacco Smokeless tobacco user: chewing tobacco Alcohol intake: current Alcohol use details: rarley-beer Substance use: never Do You Feel Safe in your Home?: Yes Lack of Transportation: No Lack of Food: Never True Current Housing: I Have Housing Concerned About Future Housing: No Difficulty Paying Gas/Electric Bills: No Difficulty Paying for Meds: No Currently Unemployed: No Education: Associate Degree Difficulty w/ Childcare or Family Care: No Living arrangements: with family Gender identity (if verbalized by the patient): Male Spiritual care concerns: No Comments At time of signature, agree with nursing past medical, surgical, social and family history. There is no relevant family history pertinent to the presenting complaint Exam Narrative: GENERAL: Well-appearing, well-nourished, morbidly obese,and in no acute distress. HEAD: Normocephalic EYES: PERRLA, conjunctivae clear ENT: Nares clear, turbinates edematous and erythematous, clear discharge. Mucous membranes moist. TM pearly kent with dull light reflex bilaterally; no tragal tenderness. Oropharynx erythematous without lesions. Tonsils not enlarged and without exudate, no drooling, no hoarseness, no trismus, uvula midline.swelling to the left anterior jaw with palpable lump noted which is tender, no Grayson angina noted no dental caries or any redness of gums or swelling, able to control own secretions. NECK: Supple. left lymphadenopathy CHEST: Clear to auscultation, breath sounds equal. No wheezing, rhonchi, rales, or stridor. No respiratory distress, speaks in full sentences.no cough, SAO2 98% on room air HEART: Regular rate and rhythm. No murmur heard. SKIN: Warm, dry, no rash. NEURO: Alert and oriented x3. PSYCH: Normal mood and affect Course Course Emergency Course: Patient is aware of diagnosis, understands and agrees to treatment plan.? Anticipatory guidance given.? Patient agrees to follow-up as directed and is aware of reasons to seek care at the emergency department. Portions of this record may have been created with voice recognition software Level of Care: Express Care Visit Vital Signs Vital signs: Vital Signs Temperature 36.6 C 05/04/25 15:54 Pulse Rate 77 05/04/25 15:54 Respiratory Rate 16 05/04/25 15:54 Blood Pressure 157/93 H 05/04/25 15:54 Pulse Oximetry 98 05/04/25 15:54 Temperature 36.6 C 05/04/25 15:54 Pulse Rate 77 05/04/25 15:54 Respiratory Rate 16 05/04/25 15:54 Blood Pressure 157/93 H 05/04/25 15:54 Pulse Oximetry 98 05/04/25 15:54 Reviewed MDM - URI/Sore Throat MDM Narrative Medical decision making narrative: Differential diagnosis considered: Watson virus, strep pharyngitis, allergic rhinitis, upper respiratory tract infection, sinusitis, rhinosinusitis, nasopharyngitis. viral pharyngitis, otitis media, otitis externa, pneumonia, bronchitis, viral cough syndrome, viral syndrome, and influenza.? Exam findings show no acute concerns or changes; patient is non-toxic appearing and is in no distress.? Patient is appropriate for outpatient treatment and follow-up. Differential Diagnosis Differential diagnosis: Likely viral infection, pharyngitis and other (swelling to left anterior jaw, sialadenitis, jaw pain) Medical Records Attestation: I reviewed the patient's medical records. Lab Data Attestation: I reviewed the patient's lab results. Critical Care Time Critical Care Time Critical Care Time: No Discharge Plan Discharge Clinical Impression: Swelling of salivary gland, Jaw pain Patient Disposition: Home Condition: Stable Instructions: Antibiotic Form, Sialoadenitis (ED) Additional Instructions: monitor for any fever . Do not share items with others. Salt water gargles may alleviate some of the throat discomfort. You can take Tylenol or ibuprofen per the package instructions for pain/fever. antibiotic as prescribed take all doses Medrol Dosepak take as prescribed may use ice to left anterior jaw area of discomfort and swelling If your symptoms persist, change or worsen significantly before you can contact your personal physician then please, without delay, go to the emergency department for further evaluation. Follow-up with PCP in 7-10 days or sooner if needed Follow up with PCP soon in regards to your blood pressure which is elevated above threshold for referral. Blood pressure above 120/80 may indicate pre- hypertension.157/93 if any difficulty with swallowing or breathing go directly to emergency room or call 911 maintain soft diet or clear liquids the next couple days Patient Language: [place] Prescriptions: New methylprednisolone [Medrol (Huey)] 4 mg tablets,dose pack See Rx Instructions .ROUTE .COMPLEX Qty: 21 0RF Rx Instructions: orally per package directions amoxicillin-pot clavulanate 875-125 mg tablet 1 tablet PO Q12H Qty: 20 0RF No Action meloxicam 15 mg tablet 15 mg PO DAILY Qty: 30 2RF losartan 50 mg tablet 50 mg PO DAILY Qty: 90 0RF Rx Instructions: NEEDS APPOINTMENT FOR FURTHER REFILLS atorvastatin 10 mg tablet 10 mg PO QHS Qty: 90 1RF Follow-up/Referrals: Alisha Neri, [facility] [Primary Care Provider, Internal Medicine] Time of Disposition: 16:28 Quality Yomi Coma Scale Eyes: Open Verbal: Oriented and Alert Motor: Follows Commands Yomi Coma Total Score: 15
== END 2025-05-04 16:30 | disposition home or self-care (01) ==
PROVIDERS: Emergency Provider Registered Nurse; PCP Nurse Practitioner
DX: K11.1 Hypertrophy of salivary gland (principal); R68.84 Jaw pain; F17.220 Nicotine dependence, chewing tobacco, uncomplicated; I10 Essential (primary) hypertension; E78.5 Hyperlipidemia, unspecified; E66.01 Morbid (severe) obesity due to excess calories; Z68.43 Body mass index [BMI] 50.0-59.9, adult
CPT/HCPCS: 99213; G0463